=== PATIENT | male | born 1975 | race Caucasian/White ===

== ENCOUNTER 2024-03-10 00:19 | Day surgery (SDC) | payer OTHER, SELFPAY ==
[2024-02-24 16:03] VITALS: BMI 24.8
[2024-03-10 09:27] VITALS: BP 121/76; PULSE 86; RESP 16; TEMP 36.1; O2SAT 100; BMI 23.1
--- NOTE | 2024-03-10 09:43 | P.PNAN_ITS ---
Anes - Initial Pre Proc Eval Procedure: Operation Date: 03/10/24 10:30 Proposed Procedures p Screening Colonoscopy - Jamie Zuniga MD Date/Time: 03/10/24 09:43 Surgeon: Jamie Zuniga MD Pre Op Diagnosis: neoplasm screening Patient Data Age: 48 Gender: M Height: 1.78 m Weight: 73.1 kg Last Vital Signs Temp 96.9 F L 03/10/24 09:27 Pulse 86 03/10/24 09:27 Resp 16 03/10/24 09:27 BP 121/76 03/10/24 09:27 Pulse Ox 100 03/10/24 09:27 O2 Del Method Room Air 03/10/24 09:27 Allergies Allergy/AdvReac Type Severity Reaction Status Date / Time No Known Allergies Allergy Verified 03/10/24 09:26 Home Medications Medication Instructions Recorded Confirmed Type No Home Medications 03/10/24 03/10/24 History Results Review: All pre-operative results and documents have been reviewed as part of the pre- operative evaluation. [facility] Social History Social History Smoking status: Current every day smoker Tobacco type: cigarettes Alcohol intake: never Substance use: former Substance use type: former substance user, painkillers and methamphetamine Living arrangements: with family Spiritual care concerns: No Anes - Eval Final PreProcedure Day of Procedure 03/10/24 09:43 Patient weight: normal Heart: regular rate and rhythm Lungs: clear to auscultation Neurological: alert and oriented Last oral intake: >/= 8 hours Emergent: no Anesthetic plan: proceed Results Review: All pre-operative results and documents have been reviewed as part of the pre- operative evaluation. Informed Consent: The patient's anesthetic plan and its attendant risks and benefits were discussed with the patient/family/POA. Questions were solicited and answers provided to the satisfaction of the patient/family/POA.
[2024-03-10] MEDS: LACTATED RINGERS 1,000 ML 150 ML IV CONT (09:50)
--- NOTE | 2024-03-10 09:50 | WPDANESEPPF ---
Anes - Initial Pre Proc Eval Procedure: Operation Date: 03/10/24 10:30 Proposed Procedures p Screening Colonoscopy - Jamie Zuniga MD Date/Time: 03/10/24 09:50 Surgeon: Jamie Zuniga MD Pre Op Diagnosis: neoplasm screening Patient Data Age: 48 Gender: M Height: 1.78 m Weight: 73.1 kg Last Vital Signs Temp 96.9 F L 03/10/24 09:27 Pulse 86 03/10/24 09:27 Resp 16 03/10/24 09:27 BP 121/76 03/10/24 09:27 Pulse Ox 100 03/10/24 09:27 O2 Del Method Room Air 03/10/24 09:27 Allergies Allergy/AdvReac Type Severity Reaction Status Date / Time No Known Allergies Allergy Verified 03/10/24 09:26 Home Medications Medication Instructions Recorded Confirmed Type No Home Medications 03/10/24 03/10/24 History Patient hx anesthesia problems: none Family hx anesthesia problems: none Results Review: All pre-operative results and documents have been reviewed as part of the pre-operative evaluation. [facility], [facility] Social History Social History Smoking status: Current every day smoker Tobacco type: cigarettes Alcohol intake: never Substance use: former Substance use type: former substance user, painkillers and methamphetamine Living arrangements: with family Spiritual care concerns: No Anes - Eval Final PreProcedure Day of Procedure 03/10/24 09:50 Patient weight: normal Heart: regular rate and rhythm Lungs: clear to auscultation Airway: Mallampati scale class II (broken and chipped teeth; meth teeth) Neurological: alert and oriented Last oral intake: >/= 8 hours ASA classification: III Emergent: no Anesthetic plan: proceed Anesthesia type and monitoring: general GIVS and standard monitoring Results Review: All pre-operative results and documents have been reviewed as part of the pre-operative evaluation. Informed Consent: The patient's anesthetic plan and its attendant risks and benefits were discussed with the patient/family/POA. Questions were solicited and answers provided to the satisfaction of the patient/family/POA.
--- NOTE | 2024-03-10 09:51 | WPDANESEPPF ---
Anes - Initial Pre Proc Eval Procedure: Operation Date: 03/10/24 10:30 Proposed Procedures p Screening Colonoscopy - Jamie Zuniga MD Date/Time: 03/10/24 09:51 Surgeon: Jamie Zuniga MD Pre Op Diagnosis: neoplasm screening Patient Data Age: 48 Gender: M Height: 1.78 m Weight: 73.1 kg Last Vital Signs Temp 96.9 F L 03/10/24 09:27 Pulse 86 03/10/24 09:27 Resp 16 03/10/24 09:27 BP 121/76 03/10/24 09:27 Pulse Ox 100 03/10/24 09:27 O2 Del Method Room Air 03/10/24 09:27 Allergies Allergy/AdvReac Type Severity Reaction Status Date / Time No Known Allergies Allergy Verified 03/10/24 09:26 Home Medications Medication Instructions Recorded Confirmed Type No Home Medications 03/10/24 03/10/24 History Patient hx anesthesia problems: none Family hx anesthesia problems: none Results Review: All pre-operative results and documents have been reviewed as part of the pre-operative evaluation. [facility] Social History Social History Smoking status: Current every day smoker Tobacco type: cigarettes Alcohol intake: never Substance use: former Substance use type: former substance user, painkillers and methamphetamine Living arrangements: with family Spiritual care concerns: No Anes - Eval Final PreProcedure Day of Procedure 03/10/24 09:51 Patient weight: normal Heart: regular rate and rhythm Lungs: clear to auscultation Airway: Mallampati scale class II (chipped and broken teeth; meth teeth) Neurological: alert and oriented Last oral intake: >/= 8 hours ASA classification: III Emergent: no Anesthetic plan: proceed Anesthesia type and monitoring: general GIVS and standard monitoring Results Review: All pre-operative results and documents have been reviewed as part of the pre-operative evaluation. Informed Consent: The patient's anesthetic plan and its attendant risks and benefits were discussed with the patient/family/POA. Questions were solicited and answers provided to the satisfaction of the patient/family/POA.
--- NOTE | 2024-03-10 09:54 | PM.HPGS ---
History of Present Illness History of Present Illness Consent: Risks, benefits, and alternatives have been discussed and questions answered. Patient agrees to proceed with procedure. Chief complaint: neoplasm screening Narrative: Juan Alberto Rodas is a 48 year old male here for first screening colonoscopy Review of Systems Review of Systems: All systems reviewed & are unremarkable except as noted in HPI and below PMFSH Past Medical History Medical History (Updated 03/10/24 @ 09:54 by Jamie Zuniga MD) Colon cancer screening Social History Social History Smoking status: Current every day smoker Tobacco type: cigarettes Alcohol intake: never Substance use: former Substance use type: former substance user, painkillers and methamphetamine Living arrangements: with family Spiritual care concerns: No Meds Home Medications and Allergies Home Medications Medication Instructions Recorded Confirmed Type No Home Medications 03/10/24 03/10/24 History Allergies Allergy/AdvReac Type Severity Reaction Status Date / Time No Known Allergies Allergy Verified 03/10/24 09:26 Vital Signs Vital Signs - 24 hr 03/10/24 09:27 Temperature 96.9 F L Pulse Rate 86 Respiratory Rate 16 Blood Pressure 121/76 Pulse Oximetry 100 Oxygen Delivery Room Air Exam Const: General: comfortable and no acute distress HENMT: Face/Nose/Sinus: Normal nares present Eyes: General: appearance normal, both eyes and all related structures Neck: Neck: no JVD Resp: Auscultation: clear to auscultation bilaterally Cardio: Rate: regular rate Rhythm: regular rhythm GI: Inspection: non-distended GI Palp: Yes Soft to palpation Skin: General skin exam: normal color Neuro: General: gait normal Speech: normal speech Extrem: General: normal to inspection Psych: Mental Status: mental status grossly normal Assessment and Plan Assessment and plan (1) Colon cancer screening: Code(s): Z12.11 - Encounter for screening for malignant neoplasm of colon Status: Acute Assessment and Plan: colonoscopy
[2024-03-10 10:14] VITALS: BP 112/74; PULSE 87; RESP 17; O2SAT 98
[2024-03-10 10:24] VITALS: BP 112/74; PULSE 80; RESP 15; O2SAT 98
[2024-03-10 10:34] VITALS: BP 127/82; PULSE 70; RESP 17; O2SAT 98
[2024-03-10 10:44] VITALS: BP 130/78; PULSE 62; RESP 17; O2SAT 98
[2024-03-10 10:54] VITALS: BP 141/89; PULSE 52; RESP 14; O2SAT 100
== END 2024-03-10 11:02 | disposition home or self-care (01) ==
PROVIDERS: PCP Internal Medicine; Visit Provider Internal Medicine Gastroenterology
PROC: 0DJD8ZZ Inspection of Lower Intestinal Tract, Via Natural or Artificial Opening Endoscopic (ICD-10-PCS; CPT 45378; principal; 2024-03-10 10:30)
DX: Z12.11 Encounter for screening for malignant neoplasm of colon (principal); D12.4 Benign neoplasm of descending colon; F17.210 Nicotine dependence, cigarettes, uncomplicated
CPT/HCPCS: 45385; 88305; J2704; J7120